=== PATIENT | male | born 1935 | race Caucasian/White ===

== ENCOUNTER 2022-09-19 09:56 | Inpatient (IN) | payer MEDICARE, OTHER ==
[~2022-09-19] VITALS: Ht 175.2 cm; Wt 76.8 kg
[2022-09-19] VITALS (7 sets, daily range): BP systolic 100–142; BP diastolic 57–125
--- NOTE | 2022-09-19 10:08 | ED Dyspnea ---
General Stated Complaint: SOB History of Present Illness Date Seen by Provider: Sep 19, 2022 Time Seen by Provider: 10:05 Initial Comments 86-year-old male presents because he is short of breath. Was walking at [facility] today and felt like he was going to "pass out" patient reports he just has not felt good for about 2 weeks. He has not seen his primary care provider. Patient reports little bit of a cough. He denies any chest pain, nausea or vomiting. Patient no reports of fever, chills, diarrhea. Allergies and Home Medications Allergies Coded Allergies: No Known Drug Allergies (Unverified , 09/19/22) Patient Home Medication List Home Medication List Reviewed: Yes Review of Systems Review of Systems Constitutional: No chills, No fever; malaise, weakness Respiratory: cough; No short of breath Cardiovascular: No chest pain, No palpitations Genitourinary: no symptoms reported Musculoskeletal: no symptoms reported Skin: no symptoms reported Psychiatric/Neurological: No Symptoms Reported Physical Exam Vital Signs Vital Signs - First Documented 09/19/22 10:23 Temp 36.6 Pulse 38 Resp 15 B/P (MAP) 133/66 (88) Pulse Ox 100 O2 Delivery Room Air Capillary Refill : Height, Weight, BMI Height: '" Weight: lbs. oz. kg; BMI Method: General Appearance: No Apparent Distress Respiratory: Lungs Clear, Normal Breath Sounds Cardiovascular: Bradycardia Gastrointestinal: Non Tender, Soft Extremity: Normal Inspection, Normal Range of Motion Neurologic/Psychiatric: Alert, Oriented x3, Normal Mood/Affect, incident commander II-XII Norm as Tested Skin: Normal Color, Warm/Dry Progress/Results/Core Measures Results/Orders Lab Results Laboratory Tests Test 09/19/22 10:15 09/19/22 10:18 Range/Units White Blood Count 8.2 4.3-11.0 10^3/uL Red Blood Count 4.12 L 4.30-5.52 10^6/uL Hemoglobin 13.7 13.3-17.7 g/dL Hematocrit 42 40-54 % Mean Corpuscular Volume 101 H 80-99 fL Mean Corpuscular Hemoglobin 33 25-34 pg Mean Corpuscular Hemoglobin Concent 33 32-36 g/dL Red Cell Distribution Width 15.7 H 10.0-14.5 % Platelet Count 195 130-400 10^3/uL Mean Platelet Volume 10.6 9.0-12.2 fL Immature Granulocyte % (Auto) 0 % Neutrophils (%) (Auto) 79 H 42-75 % Lymphocytes (%) (Auto) 12 12-44 % Monocytes (%) (Auto) 7 0-12 % Eosinophils (%) (Auto) 1 0-10 % Basophils (%) (Auto) 1 0-10 % Neutrophils # (Auto) 6.4 1.8-7.8 10^3/uL Lymphocytes # (Auto) 1.0 1.0-4.0 10^3/uL Monocytes # (Auto) 0.6 0.0-1.0 10^3/uL Eosinophils # (Auto) 0.1 0.0-0.3 10^3/uL Basophils # (Auto) 0.1 0.0-0.1 10^3/uL Immature Granulocyte # (Auto) 0.0 0.0-0.1 10^3/uL Sodium Level 137 135-145 MMOL/L Potassium Level 4.8 3.6-5.0 MMOL/L Chloride Level 100 98-107 MMOL/L Carbon Dioxide Level 26 21-32 MMOL/L Anion Gap 11 5-14 MMOL/L Blood Urea Nitrogen 18 7-18 MG/DL Creatinine 0.93 0.60-1.30 MG/DL Estimat Glomerular Filtration Rate 79 BUN/Creatinine Ratio 19 Glucose Level 125 H 70-105 MG/DL Calcium Level 9.2 8.5-10.1 MG/DL Corrected Calcium 8.9 8.5-10.1 MG/DL Magnesium Level 2.0 1.6-2.4 MG/DL Total Bilirubin 0.9 0.1-1.0 MG/DL Aspartate Amino Transf (AST/SGOT) 34 5-34 U/L Alanine Aminotransferase (ALT/SGPT) 31 0-55 U/L Alkaline Phosphatase 90 40-136 U/L Troponin I < 0.30 <0.30 NG/ML Total Protein 6.9 6.4-8.2 GM/DL Albumin 4.4 3.2-4.5 GM/DL My Orders Orders - WRIGHT,KYLAH L DO Cbc With Automated Diff (09/19/22 10:09) Comprehensive Metabolic Panel (09/19/22 10:09) Magnesium (09/19/22 10:09) Thyroid Stimulating Hormone (09/19/22 10:09) Troponin I Fs (09/19/22 10:09) Ed Iv/Invasive Line Start (09/19/22 10:09) Ekg Tracing (09/19/22 10:09) Monitor-Rhythm Ecg Trace Only (09/19/22 10:09) Chest Pa/Lat (2 View) (09/19/22 10:09) Aspirin Chewable Tablet (Baby Aspirin Ch (09/19/22 11:15) Covid 19 Inhouse Test (09/19/22 11:01) Influenza A And B By Pcr (09/19/22 11:01) Isolation Central Supply Req (09/19/22 11:01) Ed Admission (Communication) (09/19/22 11:06) Medications Given in ED Current Medications Medications Dose Ordered Sig/Austyn Route Start Time Stop Time Status Last Admin Dose Admin Aspirin 324 mg ONCE ONCE PO 09/19/22 11:15 09/19/22 11:16 DC 09/19/22 11:26 324 MG Vital Signs/I&O 09/19/22 10:23 Temp 36.6 Pulse 38 Resp 15 B/P (MAP) 133/66 (88) Pulse Ox 100 O2 Delivery Room Air Progress Progress Note : Progress Note Patient's EKG shows bradycardia. It is difficult to tell what the atrial rhythm is. Patient is stable with a stable blood pressure and minimal symptoms. Discussed with Dr. Gonzales bindery helper and reviewed at [facility]. We will transfer him to [facility] for further evaluation and treatment. Discussed with Dr. Garcia hospitalist who agreed to accept admission. Dr. Gonzales states he needs aspirin but no other medication at this time and they will evaluate him once he arrived to determine if he needs pacemaker or other treatment. Patient was transferred via EMS in stable condition. Patient's labs were reviewed and show no significant acute findings with a negative troponin. Initial ECG Impression Date: Sep 19, 2022 Initial ECG Impression Time: 10:12 Initial ECG Rate: 32 Comment bradycardia, possibly supraventricular. Departure Communication (Admissions) Time/Spoke to Consulting Phy: 11:04 asa, cardiac stepdown, please admit to hospitalist with cardiology consulting Impression Primary Impression: Bradycardia Disposition: 30 STILL A PATIENT Condition: Stable Admissions Decision to Admit/Date: Sep 19, 2022 Time/Decision to Admit Time: 11:04 Departure-Patient Inst. Referrals: SELF,SALEEM LEDBETTER (PCP) Primary Care Physician KYLAH WRIGHT DO Sep 19, 2022 10:08
[2022-09-19 10:20] LABS: BASOPHILS # (AUTO) 0.1 10^3/uL (0.0-0.1); BASOPHILS % (AUTO) 1 % (0-10); EOSINOPHILS # (AUTO) 0.1 10^3/uL (0.0-0.3); EOSINOPHILS % (AUTO) 1 % (0-10); HEMATOCRIT 42 % (40-54); HEMOGLOBIN 13.7 g/dL (13.3-17.7); LYMPHOCYTES % (AUTO) 12 % (12-44); MEAN CORPUSCULAR HEMOGLOBIN 33 pg (25-34); MEAN CORPUSCULAR HGB CONC 33 g/dL (32-36); MEAN CORPUSCULAR VOLUME 101 fL (80-99); MEAN PLATELET VOLUME 10.6 fL (9.0-12.2); MONOCYTES # (AUTO) 0.6 10^3/uL (0.0-1.0); MONOCYTES % (AUTO) 7 % (0-12); NEUTROPHILS # (AUTO) 6.4 10^3/uL (1.8-7.8); NEUTROPHILS % (AUTO) 79 % (42-75); PLATELET COUNT 195 10^3/uL (130-400); WHITE BLOOD COUNT 8.2 10^3/uL (4.3-11.0)
--- NOTE | 2022-09-19 10:38 | Diagnostic Imaging Report ---
INDICATION: Dyspnea and near syncope. TECHNIQUE/COMPARISON: PA and lateral views of the chest were obtained. There is no previous study for comparison. FINDINGS: There is mild cardiomegaly. The pulmonary vascularity is at the upper limits of normal. There is no pneumothorax or consolidation. Surgical findings are noted in the mediastinum with densely calcified mediastinal lymph nodes. IMPRESSION: Background COPD and granulomatous residua without radiographic evidence of acute abnormality in the chest. Dictated by: Dictated on workstation # [id number]
[2022-09-19 10:42] LABS: POTASSIUM 4.8 MMOL/L (3.6-5.0); SODIUM 137 MMOL/L (135-145)
[2022-09-19 10:43] LABS: ALANINE AMINOTRANSFERASE 31 U/L (0-55); ALBUMIN 4.4 GM/DL (3.2-4.5); ALKALINE PHOSPHATASE 90 U/L (40-136); BILIRUBIN,TOTAL 0.9 MG/DL (0.1-1.0); BUN/CREATININE RATIO 19; CALCIUM 9.2 MG/DL (8.5-10.1); CARBON DIOXIDE 26 MMOL/L (21-32); CHLORIDE 100 MMOL/L (98-107); CREATININE SERUM 0.93 MG/DL (0.60-1.30); GFR ESTIMATED 79; GLUCOSE 125 MG/DL (70-105); TOTAL PROTEIN 6.9 GM/DL (6.4-8.2)
[2022-09-19] MEDS ORDERED: ASPIRIN 81 MG CHEW (CHILDREN'S ASA) PO ONE (11:15)
[2022-09-19] MEDS ORDERED: CATHETER FLUSH 10 ML SYR IVP PRN (12:45)
[2022-09-19] MEDS ORDERED: NF-ZOL12.5 PO (14:25)
[2022-09-19] MEDS ORDERED: MTP100TCR PO (14:25)
[2022-09-19] MEDS ORDERED: LISI10TA25 PO (14:25)
[2022-09-19] MEDS ORDERED: MULT-1136 PO (14:25)
[2022-09-19] MEDS ORDERED: ASPI-1238 PO (14:25)
[2022-09-19] MEDS ORDERED: SERT-413 PO (14:25)
[2022-09-19] MEDS ORDERED: ATOR80TA76 PO (14:25)
[2022-09-19] MEDS: CATHETER FLUSH 10 ML SYR IVP SCH ×2 (14:38→21:41)
--- NOTE | 2022-09-19 14:57 | History & Physical ---
KAROLINA RICCI 09/19/22 1457: History of Present Illness History of Present Illness Reason for visit/HPI Mr. Hou is an 86 y/o male with a PMHx of HTN, CAD, and HLD who presented to [facility] this morning with SOA and dizziness. Patient reports he went to [facility] this morning and when in the parking lot he felt like he was going to pass out. Patient states once the dizziness subsided, he got in his car and drove himself to the ED. Patient was found to have bradycardia and has been admitted to the Hospitalist service with Cardiology consultation for management. Patient is resting in bed at time of encounter. The patient's HR remains in the 30s, BP continues to remain stable. The patient's home medications were reviewed during the encounter. Patient states he took all of his prescribed medications this morning, including metoprolol 150mg. Patient denies previous occurrence. Patient reports he sees Dr. Bardales for Cardiology management; states his last appointment was in July 2022. Date of Admission Sep 19, 2022 at 12:38 Date Seen by a Provider: Sep 19, 2022 Time Seen by a Provider: 14:40 I consulted on this patient on 09/19/22 14:50 Attending Physician Hiren Mackey MD Admitting Physician Admitting Physician: Janey Anderson MD Attending Physician: Janey Anderson MD Consult Allergies and Home Medications Allergies Coded Allergies: No Known Drug Allergies (Unverified , 09/19/22) Patient Home Medication List Home Medication List Reviewed: Yes Aspirin (Aspirin EC) 81 Mg Tablet.dr, 81 MG PO HS, (Reported) Entered as Reported by: WALLY REDMOND on 09/19/221424 Last Action: Continued Atorvastatin Calcium (Atorvastatin Calcium) 80 Mg Tablet, 80 MG PO HS, (R eported) Entered as Reported by: WALLY REDMOND on 09/19/221424 Last Action: Continued Lisinopril (Lisinopril) 10 Mg Tablet, 10 MG PO HS, (Reported) Entered as Reported by: WALLY REDMOND on 09/19/221424 Last Action: Continued Metoprolol Succinate (Metoprolol Succinate) 100 Mg Tab.er.24h, 150 MG PO HS, (Reported) Entered as Reported by: WALLY REDMOND on 09/19/221424 Last Action: Reviewed Multivitamin (Multivitamin) 1 Each Tablet, 1 EACH PO DAILY, (Reported) Entered as Reported by: WALLY REDMOND on 09/19/221424 Last Action: Reviewed Sertraline HCl (Sertraline HCl) 50 Mg Tablet, 50 MG PO HS, (Reported) Entered as Reported by: WALLY REDMOND on 09/19/221424 Last Action: Continued Zolpidem Tartrate (Zolpidem Tartrate ER) 12.5 Mg Tab.mphase, 12.5 MG PO HS, (Reported) Entered as Reported by: WALLY REDMOND on 09/19/221424 Last Action: Reviewed Past Igbfesk-Chxibk-Whtflr Hx Patient Social History Tobacco Use?: No Use of E-Cig and/or Vaping dev: No Substance use?: No Alcohol Use?: No Alcohol type: Beer Alcohol Frequency: Once in a while Pt feels they are or have been: No Immunizations Up To Date Date of Influenza Vaccine: Jun 19, 2022 Current Status Advance Directives: Yes Communicates: Verbally Primary Language: Comoran Preferred Spoken Language: Comoran Is interpretation needed?: No Implanted or Applied Medical D: None Past Medical History Surgeries: CABG (1990), Orthopedic (back surgery in 2002) High Cholesterol, Hypertension Loss of Vision: Denies Anxiety, Depression Family Medical History Heart Disease (father, at age 62 due to heart disease) Review of Systems Constitutional: malaise EENTM: No blurred vision Respiratory: dyspnea on exertion Cardiovascular: No chest pain, No edema; other (lightheadedness when sitting up) Gastrointestinal: no symptoms reported; No abdominal pain, No constipation, No diarrhea, No nausea, No vomiting Musculoskeletal: no symptoms reported Skin: no symptoms reported Psychiatric/Neurological: No Symptoms Reported; Denies Headache, Denies Numbness, Denies Paresthesia Physical Exam Vital Signs Vital Signs - First Documented 09/19/22 10:23 Temp 36.6 Pulse 38 Resp 15 B/P (MAP) 133/66 (88) Pulse Ox 100 O2 Delivery Room Air Capillary Refill : Height, Weight, BMI Height: '" Weight: lbs. oz. kg; 25.80 BMI Method: General Appearance: No Apparent Distress, WD/WN Respiratory: Lungs Clear, Normal Breath Sounds, No Accessory Muscle Use, No Respiratory Distress Cardiovascular: Bradycardia (HR in the 30s) Gastrointestinal: Normal Bowel Sounds, Non Tender, Soft Extremity: No Pedal Edema, Other (patient reports chronic L LE edema due to ankle injury that occurred years ago. Trace L LE edema noted) Neurologic/Psychiatric: Alert, Oriented x3, No Motor/Sensory Deficits, Normal Mood/Affect Skin: Normal Color, Warm/Dry Assessment/Plan Assessment and Plan Problems: (1) Anxiety and depression Status: Chronic Assessment & Plan: Resume home medication of sertraline 50mg PO qd (2) Hypertension Status: Chronic Assessment & Plan: Continue to monitor BP -Hold metoprolol 150mg -Appreciate plan per Cardiology (3) Dyslipidemia Status: Chronic Assessment & Plan: Resume home medication of atorvastatin 80mg PO qd (4) Bradycardia Status: Acute Assessment & Plan: Bradycardia secondary to adverse effect of metoprolol vs. 3rd degree heart block -Close monitoring of HR with telemetry -Appreciate plan per Cardiology -Hold metoprolol -Observe overnight Admission Diagnosis Admission Status: Observation JANEY ANDERSON MD 09/20/22 1451: Allergies and Home Medications Allergies Coded Allergies: No Known Drug Allergies (Unverified , 09/19/22) Patient Home Medication List Home Medication List Reviewed: Yes Aspirin (Aspirin EC) 81 Mg Tablet.dr, 81 MG PO HS, (Reported) Entered as Reported by: WALLY REDMOND on 09/19/221424 Last Action: Continued Atorvastatin Calcium (Atorvastatin Calcium) 80 Mg Tablet, 80 MG PO HS, (Reported) Entered as Reported by: WALLY REDMOND on 09/19/221424 Last Action: Continued Lisinopril (Lisinopril) 10 Mg Tablet, 10 MG PO HS, (Reported) Entered as Reported by: WALLY REDMOND on 09/19/221424 Last Action: Continued Metoprolol Succinate (Metoprolol Succinate) 100 Mg Tab.er.24h, 150 MG PO HS, (Reported) Entered as Reported by: WALLY REDMOND on 09/19/221424 Last Action: Reviewed Multivitamin (Multivitamin) 1 Each Tablet, 1 EACH PO DAILY, (Reported) Entered as Reported by: WALLY REDMOND on 09/19/221424 Last Action: Reviewed Sertraline HCl (Sertraline HCl) 50 Mg Tablet, 50 MG PO HS, (Reported) Entered as Reported by: WALLY REDMOND on 09/19/221424 Last Action: Continued Zolpidem Tartrate (Zolpidem Tartrate ER) 12.5 Mg Tab.mphase, 12.5 MG PO HS, (Reported) Entered as Reported by: WALLY NYLA on 09/19/221424 Last Action: Reviewed Review of Systems Constitutional: malaise, weakness EENTM: No mouth pain, No nose congestion, No nose pain, No throat pain Respiratory: dyspnea on exertion, orthopnea Cardiovascular: no symptoms reported; No chest pain, No edema Gastrointestinal: no symptoms reported; No abdominal pain, No constipation, No diarrhea, No nausea, No vomiting Musculoskeletal: no symptoms reported; No back pain, No joint pain, No muscle pain Skin: no symptoms reported; No lesions, No rash Psychiatric/Neurological: No Symptoms Reported; Denies Headache, Denies Numbness, Denies Paresthesia Assessment/Plan Admission Diagnosis Admission Status: Inpatient Order (span 2 midnights) Reason for Inpatient Admission: Needs close monitoring and possible device implantation Supervisory-Addendum Brief Verification & Attestation Participated in pt care: history, physical Personally performed: exam Care discussed with: Medical Student Procedures: n/a Verification and Attestation of Medical Student E/M Service A medical student performed and documented this service in my presence. I reviewed and verified all information documented by the medical student and made modifications to such information, when appropriate. I personally performed the physical exam and medical decision making. Janey Anderson, Sep 19, 2022,1800 Symptomatic Bradycardia CAD s/p CABG 1990 HTN HLD KAROLINA RICCI Sep 19, 2022 14:57 JANEY ANDERSON MD Sep 20, 2022 14:51
--- NOTE | 2022-09-19 16:50 | Consultation-Cardiology ---
HPI-Cardiology Cardiology Consultation: Date of Consultation 09/19/22 Time Seen by a Provider: 12:40 Date of Admission Attending Physician Hiren Mackey MD Admitting Physician Admitting Physician: Luz Garcia MD Attending Physician: Luz Garcia MD Consulting Physician JEREMY WOOD MD, MA, FACP, FACC, FSCAI, CCDS HPI: Chief Complaint: Near-syncope 86 yo man who presented to the [facility] ER with symptoms of near-syncope and exertional shortness of breath that he noted while at the local [employer] today. W as found to be bradycardic. Sent to this hosp for further eval. Denies cp or palp or troy syncope. Denies n/v/d Notes gen malaise and weakness. Tires easily Review of Systems-Cardiology Review of Systems Constitutional: As described under HPI Eyes: No vision change Ears/Nose/Throat: No ear discharge, No nasal drainage, No recent hearing loss Respiratory: No As described under HPI Gastrointestinal: As described under HPI Genitourinary: No dysuria, No hematuria Musculoskeletal: back pain (chronic low back pain) Skin: No rash, No ulcerations Psychiatric/Neurological: No seizure, No focal weakness, No syncope Hematologic: No bleeding abnormalities DDE-Vzczio-Rknaet Hx Patient Social History Have you traveled recently?: No Alcohol Use?: No Pt feels they are or have been: No Immunizations Up To Date Date of Influenza Vaccine: Jun 19, 2022 Past Medical History PMH As described under Assessment. Family Medical History Family Medical History: He does not report fam h/o early CAD Allergies and Home Medications Allergies Coded Allergies: No Known Drug Allergies (Unverified , 09/19/22) Patient Home Medication List Home Medication List Reviewed: Yes Aspirin (Aspirin EC) 81 Mg Tablet.dr, 81 MG PO HS, (Reported) Entered as Reported by: WALLY REDMOND on 09/19/221424 Last Action: Continued Atorvastatin Calcium (Atorvastatin Calcium) 80 Mg Tablet, 80 MG PO HS, (Reported) Entered as Reported by: WALLY REDMOND on 09/19/221424 Last Action: Continued Lisinopril (Lisinopril) 10 Mg Tablet, 10 MG PO HS, (Reported) Entered as Reported by: WALLY REDMOND on 09/19/221424 Last Action: Continued Metoprolol Succinate (Metoprolol Succinate) 100 Mg Tab.er.24h, 150 MG PO HS, (Reported) Entered as Reported by: WALLY REDMOND on 09/19/221424 Last Action: Reviewed Multivitamin (Multivitamin) 1 Each Tablet, 1 EACH PO DAILY, (Reported) Entered as Reported by: WALLY REDMOND on 09/19/221424 Last Action: Reviewed Sertraline HCl (Sertraline HCl) 50 Mg Tablet, 50 MG PO HS, (Reported) Entered as Reported by: WALLY REDMOND on 09/19/221424 Last Action: Continued Zolpidem Tartrate (Zolpidem Tartrate ER) 12.5 Mg Tab.mphase, 12.5 MG PO HS, (Reported) Entered as Reported by: WALLY REDMOND on 09/19/221424 Last Action: Reviewed Physical Exam-Cardiology Physical Exam Vital Signs/I&O 09/19/22 09/19/22 09/19/22 09/19/22 10:23 12:46 12:48 13:00 Temp 36.6 36.0 Pulse 38 35 36 34 Resp 15 16 26 B/P (MAP) 133/66 (88) 134/92 (106) 142/125 (131) Pulse Ox 100 98 100 O2 Delivery Room Air Room Air Room Air 09/19/22 09/19/22 09/19/22 09/19/22 13:10 13:15 13:30 15:29 Temp 36.2 Pulse 36 32 36 Resp 26 19 18 B/P (MAP) 134/73 (93) 127/68 (87) 102/64 (77) Pulse Ox 96 100 98 98 O2 Delivery Room Air Room Air Room Air Room Air Capillary Refill : Constitutional: AAO x 3, well-developed, well-nourished HEENT: EOMI, hearing is well preserved; No xanthelasmas are seen Neck: carotid pulses are 2 + bilaterally, with good upstrokes Respiratory: No accessory muscle use; chest expansion is symmetric, chest is bilaterally symmetric, other (fair to good, bilat air entry) Cardiovascular: regular rate-rhythm, S1 and S2, systolic murmur (soft TAMI at card base) Gastrointestinal: No tender; soft; No guarding, No rebound; audible bowel sounds Extremities: No clubbing, No cyanosis, No significant edema Neurologic/Psychiatric: oriented x 3, other (moves all limbs equally) Skin: No rash on exposed areas, No ulcerations on exposed areas Data Review Labs Laboratory Tests 09/19/22 10:15: White Blood Count 8.2, Red Blood Count 4.12L, Hemoglobin 13.7, Hematocrit 42, Mean Corpuscular Volume 101H, Mean Corpuscular Hemoglobin 33, Mean Corpuscular Hemoglobin Concent 33, Red Cell Distribution Width 15.7H, Platelet Count 195, Mean Platelet Volume 10.6, Immature Granulocyte % (Auto) 0, Neutrophils (%) (Auto) 79H, Lymphocytes (%) (Auto) 12, Monocytes (%) (Auto) 7, Eosinophils (%) (Auto) 1, Basophils (%) (Auto) 1, Neutrophils # (Auto) 6.4, Lymphocytes # (Auto) 1.0, Monocytes # (Auto) 0.6, Eosinophils # (Auto) 0.1, Basophils # (Auto) 0.1, Immature Granulocyte # (Auto) 0.0, Sodium Level 137, Potassium Level 4.8, Chloride Level 100, Carbon Dioxide Level 26, Anion Gap 11, Blood Urea Nitrogen 18, Creatinine 0.93, Estimat Glomerular Filtration Rate 79, BUN/Creatinine Ratio 19, Glucose Level 125H, Calcium Level 9.2, Corrected Calcium 8.9, Magnesium Level 2.0, Total Bilirubin 0.9, Aspartate Amino Transf (AST/SGOT) 34, Alanine Aminotransferase (ALT/SGPT) 31, Alkaline Phosphatase 90, Troponin I < 0.30, Total Protein 6.9, Albumin 4.4, Thyroid Stimulating Hormone (TSH) 1.26 09/19/22 10:18: Influenza Type A (RT-PCR) Not Detected, Influenza Type B (RT-PCR) Not Detected, SARS-CoV-2 RNA (RT-PCR) Not Detected Laboratory Tests 09/19/22 10:15 A/P-Cardiology Assessment/Admission Diagnosis Symptomatic bradycardia (sinus rui competing with junctional rhyhtm) Hypertension Hyperlipidemia CAD - h/o CABG in 1990. Currently following with Dr Barcenas in cardiology f/u Discussion and Recomendations * Stop beta-sheela * Consider pacemaker if bradycardia does not improve 48 hours after d/c beta- sheela * Continue other meds * Monitor labs * Echo * Further recs to be based on his hosp course JEREMY WOOD MD FACP FAC CCDS Sep 19, 2022 16:50
[2022-09-19] MEDS: lisINopril 10 MG (PRINIVIL) TABLET PO SCH (20:34)
[2022-09-19] MEDS: ASPIRIN E.C. 81 MG (ECOTRIN) TAB PO SCH (20:34)
[2022-09-19] MEDS: SERTRALINE 50 MG (ZOLOFT) TABLET PO SCH (20:34)
[2022-09-19] MEDS ORDERED: ZOLPIDEM 5 MG (AMBIEN) TAB PO ONE ×2 (21:04→22:00)
[2022-09-19] MEDS ORDERED: ONDANSETRON 4 MG/2 ML (SDV) Z0FRAN IVP PRN (23:00)
[2022-09-19] MEDS ORDERED: PANTOPRAZOLE 40 MG (PROTONIX) TAB PO ONE (23:00)
[2022-09-20 04:06] LABS: BASOPHILS % (AUTO) 0 % (0-10); EOSINOPHILS # (AUTO) 0.1 10^3/uL (0.0-0.3); EOSINOPHILS % (AUTO) 1 % (0-10); HEMATOCRIT 38 % (40-54); HEMOGLOBIN 12.5 g/dL (13.3-17.7); LYMPHOCYTES # (AUTO) 0.7 10^3/uL (1.0-4.0); LYMPHOCYTES % (AUTO) 13 % (12-44); MEAN CORPUSCULAR HEMOGLOBIN 33 pg (25-34); MEAN CORPUSCULAR HGB CONC 33 g/dL (32-36); MEAN CORPUSCULAR VOLUME 101 fL (80-99); MEAN PLATELET VOLUME 11.8 fL (9.0-12.2); MONOCYTES # (AUTO) 0.4 10^3/uL (0.0-1.0); MONOCYTES % (AUTO) 7 % (0-12); NEUTROPHILS # (AUTO) 4.6 10^3/uL (1.8-7.8); NEUTROPHILS % (AUTO) 78 % (42-75); PLATELET COUNT 170 10^3/uL (130-400); WHITE BLOOD COUNT 5.9 10^3/uL (4.3-11.0)
[2022-09-20 04:20] LABS: ALBUMIN 3.7 GM/DL (3.2-4.5)
[2022-09-20 04:22] LABS: CALCIUM 8.8 MG/DL (8.5-10.1)
[2022-09-20 04:25] LABS: BILIRUBIN,TOTAL 1.1 MG/DL (0.1-1.0)
[2022-09-20 04:27] LABS: CREATININE SERUM 0.86 MG/DL (0.60-1.30)
[2022-09-20 04:48] VITALS: BP 106/61
[2022-09-20] MEDS: CATHETER FLUSH 10 ML SYR IVP SCH ×3 (05:51→21:03)
[2022-09-20 08:45] VITALS: BP 120/68
[2022-09-20 11:44] VITALS: BP 127/66
--- NOTE | 2022-09-20 12:03 | Progress Note - Cardiology ---
Cardiology SOAP Progress Note Subjective: Still weak, but better than yesterday No recurrence of near-syncope since admission No cp or palp Shortness of breath with exertion, chronic No n/v/d Objective: I&O/Vital Signs 09/20/22 09/20/22 09/20/22 09/20/22 00:02 01:00 04:48 04:55 Temp 36.3 36.9 Pulse 30 30 Resp 20 B/P (MAP) 106/61 (76) Pulse Ox 98 O2 Delivery Nasal Cannula O2 Flow Rate 2.00 09/20/22 09/20/22 09/20/22 07:19 08:45 11:44 Temp 36.2 35.9 Pulse 31 35 36 Resp 26 20 B/P (MAP) 120/68 (85) 127/66 (86) Pulse Ox 99 98 O2 Delivery Nasal Cannula Nasal Cannula O2 Flow Rate 2.00 2.00 09/20/22 00:00 Intake Total 660 ml Output Total 100 ml Balance 560 ml Constitutional: AAO x 3, well-developed, well-nourished Respiratory: No accessory muscle use; chest expansion is symmetric, chest is bilaterally symmetric, other (fair to good, bilat air entry) Cardiovascular: regular rate-rhythm, S1 and S2, systolic murmur (soft TAMI at card base) Gastrointestional: No tender; soft; No guarding, No rebound; audible bowel sounds Extremities: No clubbing, No cyanosis, No significant edema Neurologic/Psychiatric: oriented x 3, other (moves all limbs equally) Skin: No rash on exposed areas, No ulcerations on exposed areas Results/Procedures: Labs Laboratory Tests 09/20/22 03:30: White Blood Count 5.9, Red Blood Count 3.74L, Hemoglobin 12.5L, Hematocrit 38L, Mean Corpuscular Volume 101H, Mean Corpuscular Hemoglobin 33, Mean Corpuscular Hemoglobin Concent 33, Red Cell Distribution Width 15.6H, Platelet Count 170, Mean Platelet Volume 11.8, Immature Granulocyte % (Auto) 0, Neutrophils (%) (Auto) 78H, Lymphocytes (%) (Auto) 13, Monocytes (%) (Auto) 7, Eosinophils (%) (Auto) 1, Basophils (%) (Auto) 0, Neutrophils # (Auto) 4.6, Lymphocytes # (Auto) 0.7L, Monocytes # (Auto) 0.4, Eosinophils # (Auto) 0.1, Basophils # (Auto) 0.0, Immature Granulocyte # (Auto) 0.0, Sodium Level 137, Potassium Level 5.0, Chloride Level 104, Carbon Dioxide Level 25, Anion Gap 8, Blood Urea Nitrogen 18, Creatinine 0.86, Estimat Glomerular Filtration Rate 84, BUN/Creatinine Ratio 21, Glucose Level 94, Calcium Level 8.8, Corrected Calcium 9.0, Total Bilirubin 1.1H, Aspartate Amino Transf (AST/SGOT) 28, Alanine Aminotransferase (ALT/SGPT) 28, Alkaline Phosphatase 67, Total Protein 6.0L, Albumin 3.7 Laboratory Tests 09/19/22 10:15 09/20/22 03:30 A/P: Assessment: Symptomatic bradycardia (sinus rui competing with junctional rhyhtm) - Echo on 09-20-22: LVEF 55-60%, mod to sev enlargement of LA, mild enlargement of RA, mild enlargement of ascending aorta (4.57 cm diameter), AoV sclerosis w/o stenosis and with mild AI, mod TR, PASP 60-65 mmHg Hypertension - controlled Hyperlipidemia - treated with statin CAD - h/o CABG in 1990. Currently following with Dr Barcenas in cardiology f/u Plan: * Off beta-sheela for 24 hours.Still bradycardic with heart rate in the 30s * Consider pacemaker if bradycardia does not improve 48 hours after d/c beta- sheela * Continue other meds * Monitor labs JEREMY WOOD MD FACP [facility] Sep 20, 2022 12:03
--- NOTE | 2022-09-20 12:14 | Progress Note ---
KAROLINA RICCI 09/20/22 1214: Subjective Subjective/Events-last exam Mr. Hou is an 86 y/o male with a PMHx of HTN, CAD, and HLD who presented to [place] ED this morning with SOA and dizziness. Patient reports he went to [facility] on 09/19 and when in the parking lot he felt like he was going to pass out. Patient states once the dizziness subsided, he got in his car and drove himself to the ED. Patient was found to have bradycardia and has been admitted to the Hospitalist service with Cardiology consultation for management. Patient is resting in bed at time of encounter. Patient continues to have HR in the 30s. BP remains stable. Patient denies CP or SOA but endorses weakness and dizziness when sitting upright. The plan per Cardiology is pacemaker placement if the patient's HR does not recover at 48hrs since admission. The patient is agreeable to this plan. The patient denies questions or concerns at this time. Review of Systems General: Fatigue, Other (dizziness when sitting upright) Pulmonary: No Dyspnea Cardiovascular: No: Chest Pain Gastrointestinal: No: Nausea, Vomiting, Abdominal Pain Neurological: Weakness Objective Exam Last Set of Vital Signs Vital Signs Date Time Temp Pulse Resp B/P (MAP) Pulse Ox O2 Delivery O2 Flow Rate FiO2 09/20/22 11:44 35.9 36 20 127/66 (86) 98 Nasal Cannula 2.00 Capillary Refill : I&O Intake and Output 09/20/22 00:00 Intake Total 660 ml Output Total 100 ml Balance 560 ml Intake Oral 660 ml Output Urine Total 100 ml Daily Weight Change No General: Alert, Oriented X3, No Acute Distress Lungs: Clear to Auscultation Heart: Other (bradycardia) Extremities: No Edema Psych/Mental Status: Mental Status NL, Mood NL Results/Procedures Lab Laboratory Tests 09/20/22 03:30: White Blood Count 5.9, Red Blood Count 3.74L, Hemoglobin 12.5L, Hematocrit 38L, Mean Corpuscular Volume 101H, Mean Corpuscular Hemoglobin 33, Mean Corpuscular Hemoglobin Concent 33, Red Cell Distribution Width 15.6H, Platelet Count 170, Mean Platelet Volume 11.8, Immature Granulocyte % (Auto) 0, Neutrophils (%) (Auto) 78H, Lymphocytes (%) (Auto) 13, Monocytes (%) (Auto) 7, Eosinophils (%) (Auto) 1, Basophils (%) (Auto) 0, Neutrophils # (Auto) 4.6, Lymphocytes # (Auto) 0.7L, Monocytes # (Auto) 0.4, Eosinophils # (Auto) 0.1, Basophils # (Auto) 0.0, Immature Granulocyte # (Auto) 0.0, Sodium Level 137, Potassium Level 5.0, Chloride Level 104, Carbon Dioxide Level 25, Anion Gap 8, Blood Urea Nitrogen 18, Creatinine 0.86, Estimat Glomerular Filtration Rate 84, BUN/Creatinine Ratio 21, Glucose Level 94, Calcium Level 8.8, Corrected Calcium 9.0, Total Bilirubin 1.1H, Aspartate Amino Transf (AST/SGOT) 28, Alanine Aminotransferase (ALT/SGPT) 28, Alkaline Phosphatase 67, Total Protein 6.0L, Albumin 3.7 Procedures Echocardiogram on 09/20: -LV: EF 55-60% -LA: moderately to severely dilated -RA: mildly dilated -MV: moderate regurgitation -AV: thickening, mild regurgitation -TV: moderate regurgitation -PV: moderate regurgitation -Pulmonary arteries: systolic pressure estimated 60-65 mmHg -Mild enlargement of ascending aorta (4.57cm) Assessment/Plan Assessment/Plan (1) Hypertension Status: Chronic Assessment & Plan: -Continue to monitor BP -Hold metoprolol 150mg -Resume lisinopril 10mg PO qd -Appreciate plan per Cardiology (2) Anxiety and depression Status: Chronic Assessment & Plan: Resume home medication of sertraline 50mg PO qd (3) Dyslipidemia Status: Chronic Assessment & Plan: Resume home medication of atorvastatin 80mg PO qd (4) Bradycardia Status: Acute Assessment & Plan: Bradycardia secondary to adverse effect of metoprolol vs. heart block -Close monitoring of HR with telemetry -Appreciate plan per Cardiology; plan is to proceed with placement of pacemaker if HR does not recover at 48hrs since admission -Hold metoprolol JANEY GARCIA MD 09/20/22 1455: Objective Exam General: Alert, Oriented X3, No Acute Distress Lungs: Clear to Auscultation, Normal Air Movement Heart: Other (bradycardia rate) Abdomen: Normal Bowel Sounds, Soft, No Tenderness Extremities: No Edema Psych/Mental Status: Mental Status NL, Mood NL Supervisory-Addendum Brief Supervisory Addendum Verification and Attestation of Medical Student E/M Service A medical student performed and documented this service in my presence. I reviewed and verified all information documented by the medical student and made modifications to such information, when appropriate. I personally performed the physical exam and medical decision making. Janey Garcia, Sep 20, 2022,14:55 KAROLINA RICCI Sep 20, 2022 12:14 JANEY GARCIA MD Sep 20, 2022 14:55
[2022-09-20 15:54] VITALS: BP 101/57
[2022-09-20 19:52] VITALS: BP 106/63
[2022-09-20] MEDS: SERTRALINE 50 MG (ZOLOFT) TABLET PO SCH (21:03)
[2022-09-20] MEDS: lisINopril 10 MG (PRINIVIL) TABLET PO SCH (21:03)
[2022-09-20] MEDS: ASPIRIN E.C. 81 MG (ECOTRIN) TAB PO SCH (21:03)
[2022-09-20] MEDS: ZOLPIDEM 5 MG (AMBIEN) TAB PO PRN (21:57)
[2022-09-20 23:39] VITALS: BP 102/51
[2022-09-21 03:20] VITALS: BP 102/56
[2022-09-21 05:52] LABS: BASOPHILS # (AUTO) 0.1 10^3/uL (0.0-0.1); BASOPHILS % (AUTO) 1 % (0-10); EOSINOPHILS # (AUTO) 0.1 10^3/uL (0.0-0.3); EOSINOPHILS % (AUTO) 2 % (0-10); HEMATOCRIT 35 % (40-54); HEMOGLOBIN 11.6 g/dL (13.3-17.7); LYMPHOCYTES # (AUTO) 0.9 10^3/uL (1.0-4.0); LYMPHOCYTES % (AUTO) 13 % (12-44); MEAN CORPUSCULAR HEMOGLOBIN 34 pg (25-34); MEAN CORPUSCULAR HGB CONC 33 g/dL (32-36); MEAN CORPUSCULAR VOLUME 102 fL (80-99); MEAN PLATELET VOLUME 12.1 fL (9.0-12.2); MONOCYTES # (AUTO) 0.5 10^3/uL (0.0-1.0); MONOCYTES % (AUTO) 8 % (0-12); NEUTROPHILS # (AUTO) 5.2 10^3/uL (1.8-7.8); NEUTROPHILS % (AUTO) 76 % (42-75); PLATELET COUNT 155 10^3/uL (130-400); WHITE BLOOD COUNT 6.8 10^3/uL (4.3-11.0)
[2022-09-21 06:00] LABS: ALBUMIN 3.5 GM/DL (3.2-4.5); POTASSIUM 4.7 MMOL/L (3.6-5.0)
[2022-09-21 06:02] LABS: CALCIUM 8.6 MG/DL (8.5-10.1)
[2022-09-21 06:03] LABS: TOTAL PROTEIN 5.6 GM/DL (6.4-8.2)
[2022-09-21 06:05] LABS: BILIRUBIN,TOTAL 1.1 MG/DL (0.1-1.0)
[2022-09-21 06:07] LABS: CREATININE SERUM 0.82 MG/DL (0.60-1.30)
[2022-09-21] MEDS: CATHETER FLUSH 10 ML SYR IVP SCH ×3 (06:13→21:32)
[2022-09-21 07:35] VITALS: BP 125/75
[2022-09-21] MEDS ORDERED: ceFAZolin INJECTION 1,000 MG VIAL IV ONE (10:00)
[2022-09-21 11:51] VITALS: BP 100/57
[2022-09-21] MEDS ORDERED: NS IV 1000 ML 1,000 ML IV ONE (12:00)
--- NOTE | 2022-09-21 12:29 | Progress Note - Cardiology ---
Cardiology SOAP Progress Note Subjective: No shortness of breath at rest No cp or palp or syncope Gen weakness and malaise No n/v/d No focal weakness Objective: I&O/Vital Signs 09/21/22 09/21/22 09/21/22 09/21/22 01:00 03:20 07:15 07:35 Temp 36.4 36.2 Pulse 34 37 35 39 Resp 16 19 B/P (MAP) 102/56 (71) 125/75 (92) Pulse Ox 97 99 O2 Delivery Room Air Nasal Cannula O2 Flow Rate 2.00 2.00 2.00 09/21/22 09/21/22 08:38 11:51 Temp 36.6 Pulse 107 43 Resp 18 B/P (MAP) 100/57 (71) Pulse Ox 97 O2 Delivery Nasal Cannula O2 Flow Rate 2.00 09/20/22 23:59 Intake Total 900 ml Output Total 800 ml Balance 100 ml Constitutional: AAO x 3, well-developed, well-nourished Respiratory: No accessory muscle use; chest expansion is symmetric, chest is bilaterally symmetric, other (fair to good, bilat air entry) Cardiovascular: regular rate-rhythm, S1 and S2, systolic murmur (soft TAMI at c giorgi base) Gastrointestional: No tender; soft; No guarding, No rebound; audible bowel sounds Extremities: No clubbing, No cyanosis, No significant edema Neurologic/Psychiatric: oriented x 3, other (moves all limbs equally) Skin: No rash on exposed areas, No ulcerations on exposed areas Results/Procedures: Labs Laboratory Tests 09/21/22 05:07: White Blood Count 6.8, Red Blood Count 3.46L, Hemoglobin 11.6L, Hematocrit 35L, Mean Corpuscular Volume 102H, Mean Corpuscular Hemoglobin 34, Mean Corpuscular Hemoglobin Concent 33, Red Cell Distribution Width 15.8H, Platelet Count 155, Mean Platelet Volume 12.1, Immature Granulocyte % (Auto) 0, Neutrophils (%) (Auto) 76H, Lymphocytes (%) (Auto) 13, Monocytes (%) (Auto) 8, Eosinophils (%) (Auto) 2, Basophils (%) (Auto) 1, Neutrophils # (Auto) 5.2, Lymphocytes # (Auto) 0.9L, Monocytes # (Auto) 0.5, Eosinophils # (Auto) 0.1, Basophils # (Auto) 0.1, Immature Granulocyte # (Auto) 0.0, Sodium Level 139, Potassium Level 4.7, Chloride Level 104, Carbon Dioxide Level 25, Anion Gap 10, Blood Urea Nitrogen 18, Creatinine 0.82, Estimat Glomerular Filtration Rate 85, BUN/Creatinine Ratio 22, Glucose Level 90, Calcium Level 8.6, Corrected Calcium 9.0, Total Bilirubin 1.1H, Aspartate Amino Transf (AST/SGOT) 22, Alanine Aminotransferase (ALT/SGPT) 22, Alkaline Phosphatase 57, Total Protein 5.6L, Albumin 3.5 Laboratory Tests 09/20/22 03:30 09/21/22 05:07 A/P: Assessment: 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 Currently following with Dr Barcenas in cardiology f/u Plan: * Remains bradycardic off beta-sheela for 48 hours.Still bradycardic with heart rate intermittently in the 30s. Also exhibits brief episodes of sudden SVT with rates up to approx 120 * Pacemaker to control rui. May then be able to resume beta-sheela * I discussed in detail the rationale, procedure, risks, benefits, potential complications, and alternatives of permanent pacemaker with him. He understands and wishes to proceed JEREMY WOOD MD FACP [facility] Sep 21, 2022 12:29
--- NOTE | 2022-09-21 12:31 | Progress Note ---
KAROLINA RICCI 09/21/22 1231: Subjective Subjective/Events-last exam Mr. Hou is an 86 y/o male with a PMHx of HTN, CAD, and HLD who presented to [place] ED this morning with SOA and dizziness. Patient reports he went to [facility] on 09/19 and when in the parking lot he felt like he was going to pass out. Patient states once the dizziness subsided, he got in his car and drove himself to the ED. Patient was found to have bradycardia and has been admitted to the Hospitalist service with Cardiology consultation for management. Patient is resting in bed at time of encounter. Patient's HR has been 30-55 today. BP remains stable. Patient denies CP or SOA but endorses weakness and dizziness when sitting upright. The plan per Cardiology is pacemaker placement today at 1700. Patient is agreeable to plan. Patient will receive PT/OT services after procedure to prepare the patient for discharge to home. Review of Systems Pulmonary: No Dyspnea Cardiovascular: No: Chest Pain Gastrointestinal: No: Nausea, Vomiting, Abdominal Pain Objective Exam Last Set of Vital Signs Vital Signs Date Time Temp Pulse Resp B/P (MAP) Pulse Ox O2 Delivery O2 Flow Rate FiO2 09/21/22 11:51 36.6 43 18 100/57 (71) 97 Nasal Cannula 2.00 Capillary Refill : I&O Intake and Output 09/21/22 00:00 Intake Total 1000 ml Output Total 800 ml Balance 200 ml Intake Oral 1000 ml Output Urine Total 800 ml General: Alert, Oriented X3 Lungs: Clear to Auscultation, Normal Air Movement Heart: Other (bradycardia) Abdomen: Normal Bowel Sounds, Soft Extremities: No Edema Psych/Mental Status: Mental Status NL, Mood NL Results/Procedures Lab Laboratory Tests 09/21/22 05:07: White Blood Count 6.8, Red Blood Count 3.46L, Hemoglobin 11.6L, Hematocrit 35L, Mean Corpuscular Volume 102H, Mean Corpuscular Hemoglobin 34, Mean Corpuscular Hemoglobin Concent 33, Red Cell Distribution Width 15.8H, Platelet Count 155, Mean Platelet Volume 12.1, Immature Granulocyte % (Auto) 0, Neutrophils (%) (Auto) 76H, Lymphocytes (%) (Auto) 13, Monocytes (%) (Auto) 8, Eosinophils (%) (Auto) 2, Basophils (%) (Auto) 1, Neutrophils # (Auto) 5.2, Lymphocytes # (Auto) 0.9L, Monocytes # (Auto) 0.5, Eosinophils # (Auto) 0.1, Basophils # (Auto) 0.1, Immature Granulocyte # (Auto) 0.0, Sodium Level 139, Potassium Level 4.7, Chloride Level 104, Carbon Dioxide Level 25, Anion Gap 10, Blood Urea Nitrogen 18, Creatinine 0.82, Estimat Glomerular Filtration Rate 85, BUN/Creatinine Ratio 22, Glucose Level 90, Calcium Level 8.6, Corrected Calcium 9.0, Total Bilirubin 1.1H, Aspartate Amino Transf (AST/SGOT) 22, Alanine Aminotransferase (ALT/SGPT) 22, Alkaline Phosphatase 57, Total Protein 5.6L, Albumin 3.5 Procedures Echocardiogram on 09/20: -LV: EF 55-60% -LA: moderately to severely dilated -RA: mildly dilated -MV: moderate regurgitation -AV: thickening, mild regurgitation -TV: moderate regurgitation -PV: moderate regurgitation -Pulmonary arteries: systolic pressure estimated 60-65 mmHg -Mild enlargement of ascending aorta (4.57cm) Assessment/Plan Assessment/Plan Admission Status: Inpatient Order (span 2 midnights) (1) Hypertension Status: Chronic Assessment & Plan: -Continue to monitor BP -Hold metoprolol 150mg -Resume lisinopril 10mg PO qd -Appreciate plan per Cardiology (2) Anxiety and depression Status: Chronic Assessment & Plan: Resume home medication of sertraline 50mg PO qd (3) Dyslipidemia Status: Chronic Assessment & Plan: Resume home medication of atorvastatin 80mg PO qd (4) Bradycardia Status: Acute Assessment & Plan: Bradycardia secondary to adverse effect of metoprolol vs. heart block -Close monitoring of HR with telemetry -Hold metoprolol -Pacemaker placement on 09/21 at 1700 -PT/OT on 09/22 -Plan for discharge on 09/23 if patient is stable and progressing well JANEY GARCIA MD 09/21/22 4754: Supervisory-Addendum Brief Supervisory Addendum Verification and Attestation of Medical Student E/M Service A medical student performed and documented this service in my presence. I reviewed and verified all information documented by the medical student and made modifications to such information, when appropriate. I personally performed the physical exam and medical decision making. Janey Garcia Sep 21, 2022,16:38 KAROLINA RICCI Sep 21, 2022 12:31 JANEY GARCIA MD Sep 21, 2022 16:39
[2022-09-21] MEDS ORDERED: MIDAZOLAM 5 MG/5 ML (VERSED) VIAL ONE (15:41)
[2022-09-21] MEDS ORDERED: fentaNYL INJ 100 MCG/2 ML AMP ONE (15:41)
[2022-09-21] MEDS ORDERED: HEParin (CATH LAB) 1,000 ML IV ONE (15:41)
[2022-09-21] MEDS ORDERED: LIDOCAINE 1% INJ 30 ML (XYLOCAINE) VIAL ONE ×2 (15:41→17:20)
[2022-09-21] MEDS ORDERED: NS IV 1000 ML 2,000 ML ONE (15:42)
[2022-09-21 15:59] VITALS: BP 122/60
[2022-09-21] MEDS ORDERED: NS (IVPB) 50 ML ONE (16:22)
[2022-09-21] MEDS ORDERED: ceFAZolin INJECTION 1,000 MG ONE (16:22)
[2022-09-21] MEDS ORDERED: PATIENT MAY USE OWN MEDS, ALL PO SCH (19:00)
[2022-09-21] MEDS ORDERED: NS IV 1000 ML 1,000 ML IV SCH (19:00)
[2022-09-21 19:49] VITALS: BP 103/66
[2022-09-21] MEDS: lisINopril 10 MG (PRINIVIL) TABLET PO SCH (21:30)
[2022-09-21] MEDS: SERTRALINE 50 MG (ZOLOFT) TABLET PO SCH (21:30)
[2022-09-21] MEDS: ASPIRIN E.C. 81 MG (ECOTRIN) TAB PO SCH (21:30)
[2022-09-21] MEDS: ceFAZolin INJECTION 1,000 MG in NS (IVPB) 50 ML IV SCH (21:30)
--- NOTE | 2022-09-21 22:19 | Diagnostic Imaging Report ---
INDICATION: Pacemaker placement PA and lateral chest obtained at 7:00 p.m. and compared to 09/19/2022. There is cardiomegaly and poststernotomy change. There is a new dual-lead pacemaker device in place. There is central vascular congestion with some interstitial edema. There is no pneumothorax or pleural fluid. IMPRESSION: Cardiomegaly with new pacemaker device in place. No pneumothorax post pacemaker placement. There is no significant pleural fluid. There is some interstitial edema. Dictated by: Dictated on workstation # [id number]
[2022-09-21] MEDS: ZOLPIDEM 5 MG (AMBIEN) TAB PO PRN (23:07)
--- NOTE | 2022-09-21 23:17 | OPERATIVE REPORT ---
DATE OF SERVICE: 09/21/2022 PREOPERATIVE DIAGNOSES: Profound bradycardia (sinus competing with junctional) with symptoms of near syncope. POSTOPERATIVE DIAGNOSES: Profound bradycardia (sinus competing with junctional) with symptoms of near syncope. PROCEDURE: Dual chamber pacemaker implantation. DESCRIPTION OF PROCEDURE: He was brought to the cardiac catheterization laboratory in the fasting state. Left prepectoral area was prepared and draped in the usual sterile fashion. 1% lidocaine was used for local anesthesia. Modified Seldinger technique was used to advance two guidewires into the left subclavian vein and the tips were placed in the right atrium. Sharp and blunt dissection was used to make a pacemaker pocket. The pocket was packed with saline gauze. The guidewires were used to advance sheaths and the guidewires were removed. The sheaths were used to advance the leads and sheaths were removed. All lead manipulation was carried out under fluoroscopy. Both leads were active fixation leads. The atrial lead was placed close to the site of the right atrial appendage. The right ventricular lead was placed at the right ventricular apex. The model number of the atrial lead is [id number] with serial number [id number] and the right ventricular lead is a Medtronic model 836400 with serial number [id number]. The leads were fixed to the prepectoral fascia using 0 Ethibond and sleeves. The gauze was removed from the pacemaker pocket. The pocket was thoroughly irrigated with normal saline. Good hemostasis was assured. The leads were attached to a dual dual-chamber pacemaker. This is a Medtronic model [id number] with serial number [id number]. The pacemaker and leads were put in a TYRX pouch and everything was placed in the pacemaker pocket and the pocket was closed in 2 layers using 3-0 Vicryl. He tolerated the procedure well. P-wave amplitude is 1 millivolt. Pacing impedance in the right atrium is 418 ohms. Pacing capture threshold in the atrium is 0.75 volts at 0.4 milliseconds. R-wave amplitude is 6.3 millivolts. Right ventricular pacing impedance is 627 ohms. Ventricular pacing threshold is 0.75 volts at 0.4 msec. The pacemaker is in the AAIR to DDDR mode. The lower rate is 60 beats per minute. Upper tracking rate is 130 beats per minute. Job ID: [id number] DocumentID: [id number] Dictated Date: 09/21/2022 18:37:52 Screw Remover Date: 09/21/2022 23:14:00 Dictated By: JEREMY WOOD MD; HAILEE; FACP; FACC;
[2022-09-22 04:43] LABS: BASOPHILS % (AUTO) 0 % (0-10); EOSINOPHILS # (AUTO) 0.1 10^3/uL (0.0-0.3); EOSINOPHILS % (AUTO) 2 % (0-10); HEMATOCRIT 33 % (40-54); HEMOGLOBIN 10.8 g/dL (13.3-17.7); LYMPHOCYTES # (AUTO) 0.8 10^3/uL (1.0-4.0); LYMPHOCYTES % (AUTO) 11 % (12-44); MEAN CORPUSCULAR HEMOGLOBIN 33 pg (25-34); MEAN CORPUSCULAR HGB CONC 33 g/dL (32-36); MEAN CORPUSCULAR VOLUME 102 fL (80-99); MEAN PLATELET VOLUME 11.5 fL (9.0-12.2); MONOCYTES # (AUTO) 0.5 10^3/uL (0.0-1.0); MONOCYTES % (AUTO) 7 % (0-12); NEUTROPHILS # (AUTO) 5.6 10^3/uL (1.8-7.8); NEUTROPHILS % (AUTO) 80 % (42-75); PLATELET COUNT 141 10^3/uL (130-400); WHITE BLOOD COUNT 7.1 10^3/uL (4.3-11.0)
[2022-09-22 05:04] LABS: ALBUMIN 3.2 GM/DL (3.2-4.5); POTASSIUM 4.3 MMOL/L (3.6-5.0)
[2022-09-22 05:05] LABS: CALCIUM 8.2 MG/DL (8.5-10.1)
[2022-09-22 05:07] LABS: TOTAL PROTEIN 5.2 GM/DL (6.4-8.2)
[2022-09-22 05:08] LABS: BILIRUBIN,TOTAL 0.8 MG/DL (0.1-1.0)
[2022-09-22 05:10] LABS: CREATININE SERUM 0.78 MG/DL (0.60-1.30)
[2022-09-22] MEDS: ceFAZolin INJECTION 1,000 MG in NS (IVPB) 50 ML IV SCH ×2 (06:50→13:10)
[2022-09-22] MEDS: CATHETER FLUSH 10 ML SYR IVP SCH ×2 (06:50→13:10)
[2022-09-22 08:00] VITALS: BP 123/70
--- NOTE | 2022-09-22 10:09 | Progress Note - Cardiology ---
Cardiology SOAP Progress Note Subjective: Lying in bed States mild discomfort at device insertion site No c/o CP, dizziness, palpitations or SOB Objective: I&O/Vital Signs 09/22/22 09/22/22 09/22/22 09/22/22 07:00 08:00 12:00 12:32 Temp 36.6 36.1 Pulse 60 60 60 60 Resp 18 14 B/P (MAP) 123/70 (87) 122/72 (89) Pulse Ox 99 98 O2 Delivery Nasal Cannula Nasal Cannula O2 Flow Rate 3.00 09/22/22 00:00 Intake Total 2040 ml Output Total 175 ml Balance 1865 ml Side: left Device Insertion Site: without hematoma, no signs of inflammation Swelling: mild amount of swelling Drainage: No Bruising: moderated bruising Constitutional: AAO x 3, well-developed, well-nourished Respiratory: No accessory muscle use; chest expansion is symmetric, chest is bilaterally symmetric, other (fair to good, bilat air entry) Cardiovascular: regular rate-rhythm, S1 and S2, systolic murmur (soft TAMI at card base) Gastrointestional: No tender; soft; No guarding, No rebound; audible bowel sounds Extremities: No clubbing, No cyanosis, No significant edema Neurologic/Psychiatric: oriented x 3, other (moves all limbs equally) Skin: No rash on exposed areas, No ulcerations on exposed areas Results/Procedures: Labs Laboratory Tests 09/22/22 04:19: White Blood Count 7.1, Red Blood Count 3.24L, Hemoglobin 10.8L, Hematocrit 33L, Mean Corpuscular Volume 102H, Mean Corpuscular Hemoglobin 33, Mean Corpuscular Hemoglobin Concent 33, Red Cell Distribution Width 15.7H, Platelet Count 141, Mean Platelet Volume 11.5, Immature Granulocyte % (Auto) 0, Neutrophils (%) (Auto) 80H, Lymphocytes (%) (Auto) 11L, Monocytes (%) (Auto) 7, Eosinophils (%) (Auto) 2, Basophils (%) (Auto) 0, Neutrophils # (Auto) 5.6, Lymphocytes # (Auto) 0.8L, Monocytes # (Auto) 0.5, Eosinophils # (Auto) 0.1, Basophils # (Auto) 0.0, Immature Granulocyte # (Auto) 0.0, Sodium Level 138, Potassium Level 4.3, Chlori de Level 105, Carbon Dioxide Level 26, Anion Gap 7, Blood Urea Nitrogen 19H, Creatinine 0.78, Estimat Glomerular Filtration Rate 86, BUN/Creatinine Ratio 24, Glucose Level 101, Calcium Level 8.2L, Corrected Calcium 8.8, Total Bilirubin 0.8, Aspartate Amino Transf (AST/SGOT) 18, Alanine Aminotransferase (ALT/SGPT) 18, Alkaline Phosphatase 62, Total Protein 5.2L, Albumin 3.2 Microbiology 09/21/22 MRSA Screen - Final, Complete MRSA not isolated Procedures NAME: ESTELA YEE [facility] REC#: [id number] PT STATUS: ADM IN : 1935 PHYSICIAN: JEREMY WOOD MD, MA, FACP, FACC, FSCAI, CCDS ADMIT DATE: 09/19/22/[facility] Signed Date of Exam:09/21/22 CHEST PA/LAT (2 VIEW) INDICATION: Pacemaker placement PA and lateral chest obtained at 7:00 p.m. and compared to 09/19/2022. There is cardiomegaly and poststernotomy change. There is a new dual-lead pacemaker device in place. There is central vascular congestion with some interstitial edema. There is no pneumothorax or pleural fluid. IMPRESSION: Cardiomegaly with new pacemaker device in place. No pneumothorax post pacemaker placement. There is no significant pleural fluid. There is some interstitial edema. 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 Currently following with Dr Barcenas in cardiology f/u Plan: * S/P Pacemaker on 09-21-22 to control rui * D/t episodes of SVT will restart BB, low dose * Ok to discharge home from cardiac stand point with out pt f/u on Monday for a device site check * Appt to see us in 2 weeks PHUONG TUCKER Sep 22, 2022 10:09
[2022-09-22] MEDS ORDERED: METO-351 PO (10:13)
--- NOTE | 2022-09-22 10:51 | Discharge Summary ---
Diagnosis/Chief Complaint Date of Admission Sep 19, 2022 at 12:38 Date of Discharge 09/22/22 Discharge Diagnosis Problems/Diagnosis: (1) Hypertension Assessment & Plan: -Continue to monitor BP -Hold metoprolol 150mg -Resume lisinopril 10mg PO qd -Appreciate plan per Cardiology Status: Chronic (2) Anxiety and depression Assessment & Plan: Resume home medication of sertraline 50mg PO qd Status: Chronic (3) Dyslipidemia Assessment & Plan: Resume home medication of atorvastatin 80mg PO qd Status: Chronic (4) Bradycardia Assessment & Plan: Bradycardia secondary to adverse effect of metoprolol vs. heart block -Close monitoring of HR with telemetry -Hold metoprolol -Pacemaker placement on 09/21 at 1700 -PT/OT on 09/22 -Plan for discharge on 09/23 if patient is stable and progressing well Status: Acute Discharge Summary-Simple/Stand Procedures Echocardiogram on 09/20: -LV: EF 55-60% -LA: moderately to severely dilated -RA: mildly dilated -MV: moderate regurgitation -AV: thickening, mild regurgitation -TV: moderate regurgitation -PV: moderate regurgitation -Pulmonary arteries: systolic pressure estimated 60-65 mmHg -Mild enlargement of ascending aorta (4.57cm) Discharge Physical Examination Allergies: Coded Allergies: No Known Drug Allergies (Unverified , 09/19/22) Vitals & I&Os Vital Sign - Last 12Hours Date Time Temp Pulse Resp B/P (MAP) Pulse Ox O2 Delivery O2 Flow Rate FiO2 09/22/22 08:00 36.6 60 18 123/70 (87) 99 Nasal Cannula 09/22/22 04:00 3.00 Intake and Output 09/22/22 00:00 Intake Total 2040 ml Output Total 175 ml Balance 1865 ml Hospital Course See final discharge diagnosis. Discharge Instructions to patient/family Please see electronic discharge instructions given to patient. Discharge Medications Reviewed and agree with Discharge Medication list on patient's Discharge Instruction sheet JANEY ANDERSON MD Sep 22, 2022 10:51
--- NOTE | 2022-09-22 10:52 | Discharge Summary ---
Discharge [facility] Reconcile Patient Problems Problems Reviewed?: Yes Discharge Medications New, Converted or Re-Newed RX: Transmitted to Pharmacy New Medications: Metoprolol Succinate (Toprol Xl) 25 Mg Tab.er.24h 25 MG PO DAILY, #30 TAB 3 Refills Continued Medications: Aspirin (Aspirin EC) 81 Mg Tablet. 81 MG PO HS, TAB Atorvastatin Calcium (Atorvastatin Calcium) 80 Mg Tablet 80 MG PO HS, TAB Lisinopril (Lisinopril) 10 Mg Tablet 10 MG PO HS, TAB LAST FILLED 05-30-2022 #90/90 DAY SUPPLY Multivitamin (Multivitamin) 1 Each Tablet 1 EACH PO DAILY, TAB Sertraline HCl (Sertraline HCl) 50 Mg Tablet 50 MG PO HS, TAB Zolpidem Tartrate (Zolpidem Tartrate ER) 12.5 Mg Tab.mphase 12.5 MG PO HS, TAB Discontinued Medications: Metoprolol Succinate (Metoprolol Succinate) 100 Mg Tab.er.24h 150 MG PO HS, TAB TAKES 1 & (100MG) TABS Patient Instructions Goal/Follow Up Appt: F.kailee with Dr Mackey 1 week Activity & Diet Discharge Diet: Cardiac Diet Activity as Tolerated: Yes JANEY ANDERSON MD Sep 22, 2022 10:52
[2022-09-22 12:00] VITALS: BP 122/72
--- NOTE | 2022-09-22 12:43 | Discharge Summary ---
Discharge Summary Hospital Course Was the Problem List Reviewed?: Yes Problems/Dx: (1) Anxiety and depression Status: Chronic Assessment & Plan: Resume sertraline 50mg PO qd (2) Hypertension Status: Chronic Assessment & Plan: Follow-up with Cardiology and PCP for out-patient management (3) Dyslipidemia Status: Chronic Assessment & Plan: Continue atorvastatin 80mg PO qd (4) Bradycardia Status: Resolved Assessment & Plan: 1. Bradycardia, likely secondary to metoprolol adverse effect- Resolved s/p pacemaker placement on 09/21. Follow-up with Cardiology for out-patient management. 2. Dyslipidemia - Continue atorvastatin 80mg PO qd 3. Hypertension - Continue lisinopril 10mg PO qd. Discontinue metoprolol 4. Anxiety, depression - Continue sertraline 50mg PO qd Hospital Course Date of Admission: Sep 19, 2022 at 12:38 Admission Diagnosis : Family Physician/Provider: Date of Discharge: 09/22/22 Discharge Diagnosis: 1. Bradycardia, likely secondary to metoprolol - Resolved s/p pacemaker placement on 09/21. 2. Dyslipidemia - Continue atorvastatin 80mg PO qd 3. Hypertension - Continue lisinopril 10mg PO qd. Discontinue metoprolol 4. Anxiety, depression - Continue sertraline 50mg PO qd Hospital Course: [Mr. Hou is an 86 y/o male with a PMHx of HTN, CAD, and HLD who presented to [place] ED on 09/19 with SOA and dizziness. Patient reported he went to [facility] on 09/19 and when in the parking lot he felt like he was going to pass out. Patient stated once the dizziness subsided, he got in his car and drove himself to the ED. Patient was found to have bradycardia and was admitted to the Hospitalist service with Cardiology consultation for management. Bradycardia was likely secondary to metoprolol, as the patient was taking an extended release formulation. After 48 hours of observation with no improvement of bradycardia, Cardiology elected to place a pacemaker. Pacemaker was place on 09/21 with no complications. The patient is stable to discharge home at this time. Discharge instructions have been provided per Dr. Garcia and Cardiology. This is a brief summary of the patient's hospital course, further information regarding the patient's stay can be found in the patient's chart.] Labs and Pending Lab Test: Laboratory Tests 09/22/22 04:19: White Blood Count 7.1, Red Blood Count 3.24L, Hemoglobin 10.8L, Hematocrit 33L, Mean Corpuscular Volume 102H, Mean Corpuscular Hemoglobin 33, Mean Corpuscular Hemoglobin Concent 33, Red Cell Distribution Width 15.7H, Platelet Count 141, Mean Platelet Volume 11.5, Immature Granulocyte % (Auto) 0, Neutrophils (%) (Auto) 80H, Lymphocytes (%) (Auto) 11L, Monocytes (%) (Auto) 7, Eosinophils (%) (Auto) 2, Basophils (%) (Auto) 0, Neutrophils # (Auto) 5.6, Lymphocytes # (Auto) 0.8L, Monocytes # (Auto) 0.5, Eosinophils # (Auto) 0.1, Basophils # (Auto) 0.0, Immature Granulocyte # (Auto) 0.0, Sodium Level 138, Potassium Level 4.3, Chloride Level 105, Carbon Dioxide Level 26, Anion Gap 7, Blood Urea Nitrogen 19H, Creatinine 0.78, Estimat Glomerular Filtration Rate 86, BUN/Creatinine Ratio 24, Glucose Level 101, Calcium Level 8.2L, Corrected Calcium 8.8, Total Bilirubin 0.8, Aspartate Amino Transf (AST/SGOT) 18, Alanine Aminotransferase (ALT/SGPT) 18, Alkaline Phosphatase 62, Total Protein 5.2L, Albumin 3.2 Microbiology 09/21/22 MRSA Screen - Final, Complete MRSA not isolated Home Meds Active Toprol Xl (Metoprolol Succinate) 25 Mg Tab.er.24h 25 Mg PO DAILY Reported Aspirin EC (Aspirin) 81 Mg Tablet.dr 81 Mg PO HS Multivitamin 1 Each Tablet 1 Each PO DAILY Lisinopril 10 Mg Tablet 10 Mg PO HS LAST FILLED 05-30-2022 #90/90 DAY SUPPLY Atorvastatin Calcium 80 Mg Tablet 80 Mg PO HS Zolpidem Tartrate ER (Zolpidem Tartrate) 12.5 Mg Tab.mphase 12.5 Mg PO HS Sertraline HCl 50 Mg Tablet 50 Mg PO HS Discharge Instructions Discharge Diet: Cardiac Diet Activity as Tolerated: Yes Discharge Physical Examination Vital Signs Vital Signs Date Time Temp Pulse Resp B/P (MAP) Pulse Ox O2 Delivery O2 Flow Rate FiO2 09/22/22 12:00 36.1 60 14 122/72 (89) 98 Nasal Cannula 3.00 General Appearance: No Apparent Distress Respiratory: Lungs Clear, Normal Breath Sounds, No Accessory Muscle Use, No Respiratory Distress Cardiovascular: Regular Rate, Rhythm, No Edema Gastrointestinal: Normal Bowel Sounds, Non Tender, Soft Extremity: No Pedal Edema Skin: Normal Color, Warm/Dry Neurologic/Psychiatric: Alert, Normal Mood/Affect Allergies: Coded Allergies: No Known Drug Allergies (Unverified , 09/19/22) Discharge Summary Date of Admission Sep 19, 2022 at 12:38 Date of Discharge 09/22/2022 Discharge Date: Sep 22, 2022 Admission Diagnosis Bradycardia Discharge Diagnosis Bradycardia - resolved s/p pacemaker placement (1) Anxiety and depression Status: Chronic Assessment & Plan: Resume home medication of sertraline 50mg PO qd (2) Hypertension Status: Chronic Assessment & Plan: Continue to monitor BP -Hold metoprolol 150mg -Appreciate plan per Cardiology (3) Dyslipidemia Status: Chronic Assessment & Plan: Resume home medication of atorvastatin 80mg PO qd (4) Bradycardia Status: Resolved Assessment & Plan: Bradycardia secondary to adverse effect of metoprolol vs. 3rd degree heart block -Close monitoring of HR with telemetry -Appreciate plan per Cardiology -Hold metoprolol -Observe overnight KAROLINA RICCI Sep 22, 2022 12:26
--- NOTE | 2022-09-22 13:42 | Progress Note - Cardiology ---
Cardiology SOAP Progress Note Subjective: Feels less fatigued and short of breath No syncope No cp No palp No n/v/d Objective: I&O/Vital Signs 09/22/22 09/22/22 09/22/22 09/22/22 04:00 07:00 08:00 12:00 Temp 36.7 36.6 36.1 Pulse 60 60 60 Resp 18 14 B/P (MAP) 123/70 (87) 122/72 (89) Pulse Ox 99 98 O2 Delivery Nasal Cannula Nasal Cannula Nasal Cannula O2 Flow Rate 3.00 3.00 09/22/22 12:32 Pulse 60 09/22/22 00:00 Intake Total 2040 ml Output Total 175 ml Balance 1865 ml Side: left Device Insertion Site: without hematoma, no signs of inflammation Swelling: mild amount of swelling Drainage: No Bruising: moderated bruising Constitutional: AAO x 3, well-developed, well-nourished Respiratory: No accessory muscle use; chest expansion is symmetric, chest is bilaterally symmetric, other (fair to good, bilat air entry) Cardiovascular: regular rate-rhythm, S1 and S2, systolic murmur (soft TAMI at card base) Gastrointestional: No tender; soft; No guarding, No rebound; audible bowel sounds Extremities: No clubbing, No cyanosis, No significant edema Neurologic/Psychiatric: oriented x 3, other (moves all limbs equally) Skin: No rash on exposed areas, No ulcerations on exposed areas Results/Procedures: Labs Laboratory Tests 09/22/22 04:19: White Blood Count 7.1, Red Blood Count 3.24L, Hemoglobin 10.8L, Hematocrit 33L, Mean Corpuscular Volume 102H, Mean Corpuscular Hemoglobin 33, Mean Corpuscular Hemoglobin Concent 33, Red Cell Distribution Width 15.7H, Platelet Count 141, Mean Platelet Volume 11.5, Immature Granulocyte % (Auto) 0, Neutrophils (%) (Auto) 80H, Lymphocytes (%) (Auto) 11L, Monocytes (%) (Auto) 7, Eosinophils (%) (Auto) 2, Basophils (%) (Auto) 0, Neutrophils # (Auto) 5.6, Lymphocytes # (Auto) 0.8L, Monocytes # (Auto) 0.5, Eosinophils # (Auto) 0.1, Basophils # (Auto) 0.0, Immature Granulocyte # (Auto) 0.0, Sodium Level 138, Potassium Level 4.3, Chloride Level 105, Carbon Dioxide Level 26, Anion Gap 7, Blood Urea Nitrogen 19H, Creatinine 0.78, Estimat Glomerular Filtration Rate 86, BUN/Creatinine Ratio 24, Glucose Level 101, Calcium Level 8.2L, Corrected Calcium 8.8, Total Bilirubin 0.8, Aspartate Amino Transf (AST/SGOT) 18, Alanine Aminotransferase (ALT/SGPT) 18, Alkaline Phosphatase 62, Total Protein 5.2L, Albumin 3.2 Microbiology 09/21/22 MRSA Screen - Final, Complete MRSA not isolated Laboratory Tests 09/21/22 05:07 09/22/22 04:19 A/P: Assessment: 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 Functioning normally on interrogation of 09-22-22 Hypertension - controlled Hyperlipidemia - treated with statin CAD - h/o CABG in 1990. Currently following with Dr Barcenas in cardiology f/u Plan: * S/P Pacemaker on 09-21-22 to control rui * D/t episodes of SVT will restart BB, low dose * Ok to discharge home from cardiac stand point with out pt f/u on Monday for a device site check * Appt to see us in 2 weeks JEREMY WOOD MD FACP FAC CCDS Sep 22, 2022 13:42
== END 2022-09-22 14:20 | disposition home or self-care (01) | DRG 244 ==
LOC: ER FS 09:58 → CSD 12:38
PROVIDERS: ADMIT Family Medicine; ATTEND Family Medicine
PROC: 0JH606Z Insertion of Pacemaker, Dual Chamber into Chest Subcutaneous Tissue and Fascia, Open Approach (ICD-10-PCS; principal; 2022-09-21)
PROC: 02H63JZ Insertion of Pacemaker Lead into Right Atrium, Percutaneous Approach (ICD-10-PCS; 2022-09-21)
PROC: 02HK3JZ Insertion of Pacemaker Lead into Right Ventricle, Percutaneous Approach (ICD-10-PCS; 2022-09-21)
DX: I49.5 Sick sinus syndrome (principal); I25.10 Atherosclerotic heart disease of native coronary artery without angina pectoris; I10 Essential (primary) hypertension; E78.00 Pure hypercholesterolemia, unspecified; I08.2 Rheumatic disorders of both aortic and tricuspid valves; T44.7X5A Adverse effect of beta-adrenoreceptor antagonists, initial encounter; F41.9 Anxiety disorder, unspecified; F32.A Depression, unspecified; Z66 Do not resuscitate; Z20.822 Contact with and (suspected) exposure to COVID-19; Z95.1 Presence of aortocoronary bypass graft; Z79.82 Long term (current) use of aspirin
CPT/HCPCS: 33208; 36415; 71046; 80053; 83735; 84443; 84484; 85025; 85027; 87081; 87636; 93005; 93041; 93306

== ENCOUNTER 2022-10-26 15:39 | Emergency (ER) | payer MEDICARE, OTHER ==
[~2022-10-26] VITALS: Ht 175.2 cm; Wt 76.3 kg
[~2022-10-26 15:39] MED LIST: ASPI-1238 PO; ATOR80TA76 PO; LISI10TA25 PO; METO-351 PO; MTP100TCR PO; MULT-1136 PO; NF-ZOL12.5 PO; SERT-413 PO
--- NOTE | 2022-10-26 15:51 | ED Cardiac General ---
History of Present Illness General Chief Complaint: Cardiac/General Problems Stated Complaint: IRR HEART RATE Source: patient, old records Exam Limitations: no limitations History of Present Illness Date Seen by Provider: Oct 26, 2022 Time Seen by Provider: 15:42 Initial Comments 87yoM with PMH of sinus node dysfunction with tachy-rui syndrome now s/p pacemaker placement by Dr. Spears on 09/21/22 due to symptomatic bradycardia, HTN, CAD, and HLD coming in because he was called by the pacemaker company telling him he needs to go to the ER. He states he has felt completely normal, no chest pain, no shortness of breath, no abdominal pain, nausea, vomiting, diarrhea, weakness, numbness, or any other concerns. Allergies and Home Medications Allergies Coded Allergies: No Known Drug Allergies (Unverified , 09/19/22) Patient Home Medication List Home Medication List Reviewed: Yes Aspirin (Aspirin EC) 81 Mg Tablet.dr, 81 MG PO HS, (Reported) Entered as Reported by: WALLY REDMOND on 09/19/22 1425 Atorvastatin Calcium (Atorvastatin Calcium) 80 Mg Tablet, 80 MG PO HS, (Reported) Entered as Reported by: WALLY REDMOND on 09/19/22 1425 Lisinopril (Lisinopril) 10 Mg Tablet, 10 MG PO HS, (Reported) Entered as Reported by: WALLY REDMOND on 09/19/22 1425 Metoprolol Succinate (Toprol Xl) 25 Mg Tab.er.24h, 25 MG PO DAILY Prescribed by: PHUONG TUCKER on 09/22/22 1013 Multivitamin (Multivitamin) 1 Each Tablet, 1 EACH PO DAILY, (Reported) Entered as Reported by: WALLY REDMOND on 09/19/22 1425 Sertraline HCl (Sertraline HCl) 50 Mg Tablet, 50 MG PO HS, (Reported) Entered as Reported by: WALLY REDMOND on 09/19/22 1425 Zolpidem Tartrate (Zolpidem Tartrate ER) 12.5 Mg Tab.mphase, 12.5 MG PO HS, (Reported) Entered as Reported by: WALLY REDMOND on 09/19/22 142 Review of Systems Review of Systems Constitutional: No fever EENTM: No Symptoms Reported Respiratory: No Symptoms Reported Cardiovascular: See HPI Gastrointestinal: No Symptoms Reported Genitourinary: No Symptoms Reported Musculoskeletal: no symptoms reported Skin: no symptoms reported Psychiatric/Neurological: No Symptoms Reported Endocrine: No Symptoms Reported Hematologic/Lymphatic: No Symptoms Reported Past Ashoelp-Uxicqd-Haynah Hx Patient Social History Tobacco Use?: No Past Medical History Surgery/Hospitalization HX: Bypass 1991 ID, pacemaker Surgeries: Yes CABG, Orthopedic High Cholesterol, Hypertension Loss of Vision: Denies Anxiety, Depression Family Medical History Heart Disease Physical Exam Vital Signs Vital Signs - First Documented 10/26/22 15:57 Temp 36.2 Pulse 78 Resp 18 B/P (MAP) 154/104 (121) Pulse Ox 97 O2 Delivery Room Air Capillary Refill : Height, Weight, BMI Height: '" Weight: lbs. oz. kg; 25.28 BMI Method: General Appearance: No Apparent Distress, WD/WN HEENT: PERRL/EOMI, Normal ENT Inspection, Pharynx Normal Neck: Full Range of Motion, Normal Inspection, Non Tender, Supple Respiratory: Chest Non Tender, Lungs Clear, Normal Breath Sounds, No Accessory Muscle Use, No Respiratory Distress Cardiovascular: Regular Rate, Rhythm, No Edema, Normal Peripheral Pulses Gastrointestinal: Normal Bowel Sounds, Non Tender, Soft; No Distended, No Guarding Extremity: Normal Capillary Refill, Normal Inspection, Normal Range of Motion, Non Tender, No Calf Tenderness, No Pedal Edema Neurologic/Psychiatric: Alert, No Motor/Sensory Deficits, Normal Mood/Affect Skin: Normal Color, Warm/Dry Progress/Results/Core Measures Results/Orders Lab Results Laboratory Tests Test 10/26/22 15:52 Range/Units White Blood Count 5.8 4.3-11.0 10^3/uL Red Blood Count 3.64 L 4.30-5.52 10^6/uL Hemoglobin 12.1 L 13.3-17.7 g/dL Hematocrit 37 L 40-54 % Mean Corpuscular Volume 102 H 80-99 fL Mean Corpuscular Hemoglobin 33 25-34 pg Mean Corpuscular Hemoglobin Concent 33 32-36 g/dL Red Cell Distribution Width 15.9 H 10.0-14.5 % Platelet Count 182 130-400 10^3/uL Mean Platelet Volume 10.2 9.0-12.2 fL Immature Granulocyte % (Auto) 0 % Neutrophils (%) (Auto) 63 42-75 % Lymphocytes (%) (Auto) 26 12-44 % Monocytes (%) (Auto) 7 0-12 % Eosinophils (%) (Auto) 4 0-10 % Basophils (%) (Auto) 1 0-10 % Neutrophils # (Auto) 3.6 1.8-7.8 10^3/uL Lymphocytes # (Auto) 1.5 1.0-4.0 10^3/uL Monocytes # (Auto) 0.4 0.0-1.0 10^3/uL Eosinophils # (Auto) 0.2 0.0-0.3 10^3/uL Basophils # (Auto) 0.0 0.0-0.1 10^3/uL Immature Granulocyte # (Auto) 0.0 0.0-0.1 10^3/uL Prothrombin Time 13.3 12.2-14.7 SEC INR Comment 1.0 0.8-1.4 Activated Partial Thromboplast Time 28 24-35 SEC Sodium Level 139 135-145 MMOL/L Potassium Level 4.6 3.6-5.0 MMOL/L Chloride Level 101 98-107 MMOL/L Carbon Dioxide Level 27 21-32 MMOL/L Anion Gap 11 5-14 MMOL/L Blood Urea Nitrogen 19 H 7-18 MG/DL Creatinine 0.79 0.60-1.30 MG/DL Estimat Glomerular Filtration Rate 85 BUN/Creatinine Ratio 24 Glucose Level 157 H 70-105 MG/DL Calcium Level 8.9 8.5-10.1 MG/DL Corrected Calcium 8.9 8.5-10.1 MG/DL Magnesium Level 1.9 1.6-2.4 MG/DL Total Bilirubin 0.6 0.1-1.0 MG/DL Aspartate Amino Transf (AST/SGOT) 33 5-34 U/L Alanine Aminotransferase (ALT/SGPT) 24 0-55 U/L Alkaline Phosphatase 118 40-136 U/L Troponin I < 0.30 <0.30 NG/ML Pro-B-Type Natriuretic Peptide 851.5 H <450.0 PG/ML Total Protein 6.6 6.4-8.2 GM/DL Albumin 4.0 3.2-4.5 GM/DL Lipase 59 8-78 U/L My Orders Orders - YANIRA PARIKH MD Cbc With Automated Diff (10/26/22 15:48) Magnesium (10/26/22 15:48) Chest 1 View Ap/Pa Only (10/26/22 15:48) Ekg Tracing (10/26/22 15:48) Comprehensive Metabolic Panel (10/26/22 15:48) Protime With Inr (10/26/22 15:48) Partial Thromboplastin Time (10/26/22 15:48) O2 (10/26/22 15:48) Monitor-Rhythm Ecg Trace Only (10/26/22 15:48) Ed Iv/Invasive Line Start (10/26/22 15:48) Lipase (10/26/22 15:48) Troponin I Fs (10/26/22 15:48) Probnp Fs (10/26/22 15:48) Vital Signs/I&O 10/26/22 15:57 Temp 36.2 Pulse 78 Resp 18 B/P (MAP) 154/104 (121) Pulse Ox 97 O2 Delivery Room Air Progress Progress Note : Progress Note 87-year-old male with above history coming in after he was called and told to come to the ER due to an irregular rhythm. The patient was paced on the monitor and paced on EKG with no concerning findings on arrival here. Normal blood pressure and he is asymptomatic. We interrogated his pacemaker with [employer], and he was in atrial flutter for 2-1/2 hours on September 21. I then contacted the device nurse for Dr. Gonzales's office, she was the one that called the patient, they report stated he was in a flutter on the , and there is no end date or time to it. Their concern was that he was still in atrial flutter. An IV was placed and basic labs were obtained including cardiac biomarkers. Electrolytes within normal limits, troponin negative, creatinine within normal limits. Chest x-ray with no acute findings. I contacted Dr. Ramirez and discussed the case with him. He just wanted to be sure the patient is on metoprolol, which the patient is. Given the patient's age, recent falls, and concern for debility, believe he would be a poor candidate for anticoagulation. Since he is at his baseline and not in atrial flutter, Dr. Ramirez also believe he is appropriate for discharge with outpatient follow-up. He was sent home with strict return precautions Initial ECG Impression Date: Oct 26, 2022 Initial ECG Impression Time: 15:47 Initial ECG Rate: 80 Initial ECG Rhythm: Normal Sinus Comment Wide QRS with a ventricularly paced rhythm, no STEMI criteria met Diagnostic Imaging Diagonstic Imaging: Xray Plain Films/CT/US/NM/MRI: chest Departure Impression Primary Impression: Atrial fib/flutter, transient Disposition: 01 HOME, SELF-CARE Condition: Improved Departure-Patient Inst. Decision time for Depature: 16:36 Referrals: SALEEM BLANCO MD (PCP/Family) Primary Care Physician Patient Instructions: Atrial Fibrillation and Atrial Flutter ED Add. Discharge Instructions: You were in a rhythm called atrial flutter for 2 hours on September 21. You are no longer in this rhythm and your pacemaker is working normally. Your labs look normal in the ER including your electrolytes. Sometimes people are put on blood thinners for this, but given your history of falling, this likely would not be a good choice. Metoprolol is a good medication for this, which you are already taking. Please follow-up with Dr. Spears as scheduled, or sooner if needed. YANIRA PARIKH MD Oct 26, 2022 15:51
[2022-10-26 16:02] LABS: BASOPHILS % (AUTO) 1 % (0-10); EOSINOPHILS # (AUTO) 0.2 10^3/uL (0.0-0.3); EOSINOPHILS % (AUTO) 4 % (0-10); HEMATOCRIT 37 % (40-54); HEMOGLOBIN 12.1 g/dL (13.3-17.7); LYMPHOCYTES # (AUTO) 1.5 10^3/uL (1.0-4.0); LYMPHOCYTES % (AUTO) 26 % (12-44); MEAN CORPUSCULAR HEMOGLOBIN 33 pg (25-34); MEAN CORPUSCULAR HGB CONC 33 g/dL (32-36); MEAN CORPUSCULAR VOLUME 102 fL (80-99); MEAN PLATELET VOLUME 10.2 fL (9.0-12.2); MONOCYTES # (AUTO) 0.4 10^3/uL (0.0-1.0); MONOCYTES % (AUTO) 7 % (0-12); NEUTROPHILS # (AUTO) 3.6 10^3/uL (1.8-7.8); NEUTROPHILS % (AUTO) 63 % (42-75); PLATELET COUNT 182 10^3/uL (130-400); WHITE BLOOD COUNT 5.8 10^3/uL (4.3-11.0)
[2022-10-26 16:21] LABS: POTASSIUM 4.6 MMOL/L (3.6-5.0)
[2022-10-26 16:22] LABS: BILIRUBIN,TOTAL 0.6 MG/DL (0.1-1.0); CALCIUM 8.9 MG/DL (8.5-10.1); CREATININE SERUM 0.79 MG/DL (0.60-1.30); MAGNESIUM 1.9 MG/DL (1.6-2.4); TOTAL PROTEIN 6.6 GM/DL (6.4-8.2)
[2022-10-26 16:23] LABS: PROTHROMBIN TIME PATIENT 13.3 SEC (12.2-14.7)
--- NOTE | 2022-10-26 16:26 | Diagnostic Imaging Report ---
INDICATION: Arrhythmia. COMPARISON: 09/21/2022 FINDINGS: Single frontal radiographic view of the chest was obtained and demonstrates persistent mild cardiomegaly. Pulmonary vascular congestion, however, is now significantly improved. Sternotomy wires and left-sided dual-lead pacemaker noted. Lungs are clear. There is no focal consolidation, large effusion, nor pneumothorax. Osseous structures show no gross acute abnormalities. IMPRESSION: 1. Mild cardiomegaly, but no evidence of overt failure or focal infiltrate. Dictated by: Dictated on workstation # [id number]
[2022-10-26 16:53] VITALS: BP 130/50
== END 2022-10-26 16:57 | disposition home or self-care (01) ==
LOC: EDUNIT# 15:39 → ER FS 15:41
DX: I48.91 Unspecified atrial fibrillation (principal); I48.92 Unspecified atrial flutter; Z95.0 Presence of cardiac pacemaker
CPT/HCPCS: 36415; 71045; 80053; 83690; 83735; 83880; 84484; 85025; 85610; 85730; 93005; 93041

== ENCOUNTER → 2023-01-03 | Outpatient (CLI) | payer MEDICARE, OTHER ==
[~2023-01-03] MED LIST changes: +CATHETER FLUSH 10 ML SYR IVP PRN; +REGADENOSON 0.4 MG/5 ML SYR (LEXISCAN) IV ONE
--- NOTE | 2023-01-04 21:34 | STRESS TEST ---
DATE OF SERVICE: 01/03/2023 RESTING AND POST REGADENOSON TECHNETIUM-99M TETROFOSMIN SPECT CT IMAGING ORDERING PHYSICIAN: Sue Bradley APRN. PRIMARY PHYSICIAN: Dr. Mackey. CLINICAL DIAGNOSIS: Coronary artery disease. Baseline images were carried out after injection of 10.88 mCi technetium-99m tetrofosmin. This was followed by 0.4 mg regadenoson and 32.7 mCi technetium-99m tetrofosmin for stress imaging. The electrocardiogram showed sinus versus paced atrial rhythm. There was intermittent ventricular pacing. There was deep T-wave inversion in the anterolateral leads during [place] complexes. The electrocardiogram did not change significantly with regadenoson infusion. The patient tolerated the procedure well. Review of images at rest and following stress indicate a basal inferior perfusion defect that appears to be predominantly fixed. Gated images showed basal inferior hypokinesis to akinesis. Left ventricular ejection fraction is calculated to be 65%. CONCLUSION: 1. 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 2. Basal inferior hypokinesis to akinesis. 3. Left ventricular ejection fraction 65%. Job ID: [id number] DocumentID: [id number] Dictated Date: 01/04/2023 16:51:24 Immigration Specialist Date: 01/04/2023 21:33:00 Dictated By: JEREMY WOOD MD; HAILEE; FACP; FACC;
== END ==
LOC: CARD 11:23
PROVIDERS: ATTEND Nurse Practitioner Family
DX: I21.29 ST elevation (STEMI) myocardial infarction involving other sites (principal); I51.89 Other ill-defined heart diseases
CPT/HCPCS: 78452; 93017; A9502